=== PATIENT | female | born 1975 | race Caucasian/White ===

== ENCOUNTER → 2017-05-05 | Outpatient (CLI) | payer OTHER | LOC: FIMAGING 12:51 | PROVIDERS: ATTEND Obstetrics & Gynecology | DX: Z12.31 Encounter for screening mammogram for malignant neoplasm of breast (principal) | CPT/HCPCS: G0202 ==

== ENCOUNTER → 2017-09-11 | Outpatient (CLI) | payer OTHER | LOC: FIMAGING 14:53 | PROVIDERS: ATTEND Emergency Medicine | DX: K82.9 Disease of gallbladder, unspecified (principal); N28.9 Disorder of kidney and ureter, unspecified ==

== ENCOUNTER 2017-09-12 18:34 | Observation (INO) | payer OTHER ==
--- NOTE | 2017-09-12 19:10 | EDPHY ---
H & P Stated Complaint: GENERALIZED ABD PAIN SEEN HERE [address]/NEG Time Seen by Provider: 09/12/17 19:10 HPI/ROS: HPI: This is a 41-year-old male who presents with Chief Complaint: GENERALIZED ABD PAIN SEEN HERE [address]/NEG Location: Epigastric and suprapubic Quality: Sharp, constant pain Duration: 2 days Signs and Symptoms: no fever, + nausea, no vomiting, no hematemesis, no blood in stool, no abdominal bloating, no diarrhea, no back pain, no urinary symptoms , no vaginal bleeding/discharge, no indigestion, no chest pain, no shortness of breath Timing: Waxes and wane Severity: 03/14 Context: Patient presents for the 2nd time in 2 days with epigastric and suprapubic, sharp, constant, nonradiating pain. Patient was seen at [facility] [place] yesterday and CT abdomen and pelvis scan ordered that showed no acute process did show gallbladder distension upper limits of normal at 10.2 cm no gallbladder wall thickening or pericholecystic fluid with normal common bile duct. Patient denies any fever/urinary symptoms/vomiting/diarrhea. She is generally healthy and has had no prior abdominal complaints. LMP 1-7 days ago. Reports has normal daily bowel movements. She was taking Percocet all day yesterday to control the pain along with Zofran. Pain returned after an hour and half not having the Percocet. She also took ibuprofen today with no relief. Patient is extremely frustrated as she has never had pain like this in the past. Modifying Factors: See above Comment: ROS: see HPI Constitutional: No fever, no chills, no weight loss Eyes: No blurred vision Respiratory: No shortness of breath, no cough Cardiovascular: No chest pain, no palpitations Gastrointestinal: + nausea, no vomiting, no diarrhea, no hematemesis, no blood in stool Genitourinary: No dysuria, no blood in urine Extremities: No myalgias, no edema Neurologic: No weakness, no numbness Skin: No rashes, no petechiae Hematologic: No bruising, no bleeding MEDICAL/SURGICAL/SOCIAL HISTORY: Medical history: Generally healthy. Does not take any regular medications. Surgical history: Denies Social history: Employed. . CONSTITUTIONAL: Moderate distress middle-aged white female, awake and alert HEENT: Atraumatic and normocephalic, PERRL, EOMI. Tympanic membranes clear. Oropharynx clear, no exudate and moist pink mucosa. Airway patent. No lymphadenopathy. No meningismus. Cardiovascular: Normal S1/S2, regular rate, regular rhythm, without murmur rub or gallop. PULMONARY/CHEST: Symmetrical and nontender. Clear to auscultation bilaterally. Good air movement. No accessory muscle usage. ABDOMEN: Soft, nondistended, moderate epigastric, mild right upper quadrant, mild suprapubic tenderness, no rebound, no guarding, no peritoneal signs, no masses or organomegaly. No CVAT. Hypoactive bowel sounds x4 EXTREMITIES: 2/2 pulses, strength 5/5, no deformities, no clubbing, no cyanosis or edema. NEUROLOGICAL: no focal neuro deficits. GCS 15. SKIN: Warm and dry, no erythema. no rash. Good capillary refill. Source: Patient Exam Limitations: No limitations - Personal History LMP (Females 10-55): 1-7 Days Ago Current Tetanus/Diphtheria Vaccine: Yes - Medical/Surgical History Hx Asthma: No Hx Chronic Respiratory Disease: No Hx Diabetes: No Hx Cardiac Disease: No Hx Renal Disease: No Hx Cirrhosis: No Hx Alcoholism: No Hx HIV/AIDS: No Hx Splenectomy or Spleen Trauma: No Other PMH: DENIES - Social History Smoking Status: Current every day smoker Constitutional: Initial Vital Signs Temperature (C) 37 C 09/12/17 18:45 Heart Rate 50 L 09/12/17 18:45 Respiratory Rate 18 09/12/17 18:45 Blood Pressure 184/84 H 09/12/17 18:45 O2 Sat (%) 98 09/12/17 18:45 O2 Delivery Mode Room Air Allergies/Adverse Reactions: No Known Allergies Allergy (Unverified 09/12/17 18:45) Home Medications: Medication Instructions Recorded [place] 5/325 (*) 09/12/17 Zofran 09/12/17 Medical Decision Making - Diagnostics Imaging Results: Imaging Impressions Abdomen Ultrasound 09/12/17 19:26 Impression: 1. Distended, otherwise normal gallbladder. 2. Common bile duct upper normal in size. 3. Elongated right hepatic lobe, which could be related to hepatomegaly or a Ravinder's lobe (normal variant). Findings discussed with Elena Jeff 09/12/2017 at 20:54. Pelvic/Renal Ultrasound 09/12/17 19:26 Impression: No visible etiology for the patient's pain. Findings discussed with Elena Jeff 09/12/2017 at 20:54. ED Course/Re-evaluation: Urinalysis, labs, IV fluids, IV medications, right upper quadrant ultrasound, pelvic ultrasound ordered Vital signs reviewed upon arrival and no systemic signs. Given 1 L normal saline, IV promethazine and IV Dilaudid Labs reviewed and grossly unremarkable including normal LFTs. Urinalysis pending upon consultation. Urine at bedside was light yellow in color. Doubt urinary tract infection. ED decision to consult for admission for intractable abdominal pain of unknown etiology. Spoke with Dr. Antonieta Navarrete who kindly accepts to admit patient and provide further care. This patient was seen under the supervision of my secondary supervising physician. I evaluated care for this patient independently. Discussed this patient with Dr. Og who did not see the patient. Differential Diagnosis: Abdominal pain in a female including but not limited to ovarian cyst, pelvic inflammatory disease, ovarian torsion, urinary tract infection, and appendicitis. - Data Points Laboratory Results: Laboratory Results 09/12/17 18:35 09/12/17 18:35 09/12/17 09/12/17 09/12/17 20:41 18:35 18:35 WBC RBC Hgb Hct MCV MCH MCHC RDW Plt Count MPV Neut % (Auto) Lymph % (Auto) [place] % (Auto) Eos % (Auto) Baso % (Auto) Nucleat RBC Rel Count Absolute Neuts (auto) Absolute Lymphs (auto) Absolute Monos (auto) Absolute Eos (auto) Absolute Basos (auto) Absolute Nucleated RBC Immature Gran % Immature Gran # VBG Lactic Acid 0.9 mmol/L mmol/L (0.7-2.1) Sodium 139 mEq/L mEq/L (135-145) Potassium 3.8 mEq/L mEq/L (3.5-5.2) Chloride 104 mEq/L mEq/L (97-110) Carbon Dioxide 26 mEq/l mEq/l (22-31) Anion Gap 9 mEq/L mEq/L (8-16) BUN 11 mg/dL mg/dL (7-23) Creatinine 0.9 mg/dL mg/dL (0.6-1.0) Estimated GFR > 60 Glucose 105 mg/dL H mg/dL (70-100) Calcium 8.9 mg/dL mg/dL (8.5-10.4) Total Bilirubin 0.8 mg/dL mg/dL (0.1-1.4) Conjugated Bilirubin 0.4 mg/dL mg/dL (0.0-0.5) Unconjugated Bilirubin 0.4 mg/dL mg/dL (0.0-1.1) AST 21 IU/L IU/L (14-46) ALT 45 IU/L IU/L (9-52) Alkaline Phosphatase 63 IU/L IU/L (38-126) Total Protein 6.6 g/dL g/dL (6.3-8.2) Albumin 4.2 g/dL g/dL (3.5-5.0) Lipase 176 IU/L IU/L (23-300) Beta HCG, Qual NEGATIVE 09/12/17 18:35 WBC 6.10 10^3/uL 10^3/uL (3.80-9.50) RBC 4.37 10^6/uL 10^6/uL (4.18-5.33) Hgb 13.9 g/dL g/dL (12.6-16.3) Hct 39.4 % % (38.0-47.0) MCV 90.2 fL fL (81.5-99.8) MCH 31.8 pg pg (27.9-34.1) MCHC 35.3 g/dL g/dL (32.4-36.7) RDW 11.7 % % (11.5-15.2) Plt Count 264 10^3/uL 10^3/uL (150-400) MPV 9.1 fL fL (8.7-11.7) Neut % (Auto) 57.1 % % (39.3-74.2) Lymph % (Auto) 28.2 % % (15.0-45.0) [place] % (Auto) 10.0 % % (4.5-13.0) Eos % (Auto) 3.8 % % (0.6-7.6) Baso % (Auto) 0.7 % % (0.3-1.7) Nucleat RBC Rel Count 0.0 % % (0.0-0.2) Absolute Neuts (auto) 3.49 10^3/uL 10^3/uL (1.70-6.50) Absolute Lymphs (auto) 1.72 10^3/uL 10^3/uL (1.00-3.00) Absolute Monos (auto) 0.61 10^3/uL 10^3/uL (0.30-0.80) Absolute Eos (auto) 0.23 10^3/uL 10^3/uL (0.03-0.40) Absolute Basos (auto) 0.04 10^3/uL 10^3/uL (0.02-0.10) Absolute Nucleated RBC 0.00 10^3/uL 10^3/uL (0-0.01) Immature Gran % 0.2 % % (0.0-1.1) Immature Gran # 0.01 10^3/uL 10^3/uL (0.00-0.10) VBG Lactic Acid Sodium Potassium Chloride Carbon Dioxide Anion Gap BUN Creatinine Estimated GFR Glucose Calcium Total Bilirubin Conjugated Bilirubin Unconjugated Bilirubin AST ALT Alkaline Phosphatase Total Protein Albumin Lipase Beta HCG, Qual Medications Given: Discontinued Medications Hydromorphone HCl (Dilaudid) 1 mg IVP EDNOW ONE Stop: 09/12/17 19:27 Last Admin: 09/12/17 19:55 Dose: 1 mg Sodium Chloride (Ns) 1,000 mls @ 0 mls/hr IV EDNOW ONE; Wide Open PRN Reason: Protocol Stop: 09/12/17 19:27 Last Admin: 09/12/17 19:55 Dose: 1,000 mls Promethazine HCl (Phenergan) 12.5 mg IVP EDNOW ONE Stop: 09/12/17 19:27 Last Admin: 09/12/17 19:56 Dose: 12.5 mg Departure - Departure Disposition: [facility] Inpatient Acute Clinical Impression: Intractable abdominal pain Condition: Fair
[2017-09-12] MEDS ORDERED: HYDROmorphONE/DILAUDID 2 MG/ML INJ IVP ONE (19:26)
[2017-09-12] MEDS ORDERED: NS 1,000 ML IV ONE (19:26)
[2017-09-12] MEDS ORDERED: PROMETHAZINE HCL 25 MG/ML INJ IVP ONE (19:26)
[2017-09-12 19:50] LABS: PLATELET COUNT 264 10^3/uL (150-400)
[2017-09-12] MEDS ORDERED: PROMETHAZINE HCL 25 MG/ML INJ IVP PRN (22:08)
[2017-09-12] MEDS ORDERED: HYDROmorphone HCL/NS 0.5 MG/ML SYR IVP PRN (22:08)
[2017-09-12] MEDS ORDERED: ONDANSETRON 4 MG/2 ML VIAL IVP PRN (22:08)
[2017-09-12] MEDS ORDERED: ACETAMINOPHEN 325 MG TAB PO PRN (22:08)
[2017-09-12] MEDS ORDERED: HYDROmorphONE/DILAUDID 2 MG TAB PO PRN (22:08)
[2017-09-12] MEDS ORDERED: ONDANSETRON DISINTEGRATING 4 MG TAB PO PRN (22:08)
[2017-09-12] MEDS ORDERED: DICYCLOMINE 10 MG CAP PO PRN (23:30)
--- NOTE | 2017-09-12 23:36 | PDGENHP ---
History and Physical - Chief Complaint Abdominal pain - History of Present Illness 41 yo F w/ no significant PMHx presents w/ abdominal pain. Patient first developed pain three days [employer]. She [place] [facility] [place] with [place] and Zofran. However, pain has persisted so she again came to the ED. She explains that the pain started as epi-gastric, then also involved the supra-pubic and lumbar areas. The pain is severe and associated with nausea and vomiting. She denies fever, diarrhea, dysuria, and abnormal vaginal discharge. Her LMP ended yesterday and she describes this as a normal period. Laboratory work-up, CT scan , and abdominal ultrasounds have not revealed clear etiology thus far. She is being admitted for pain control and possible further work-up. History Information - Allergies/Home Medication List Allergies/Adverse Reactions: No Known Allergies Allergy (Unverified 09/12/17 18:45) Home Medications: [place] 5/325 (*) 09/12/17 [Last Taken Unknown] Zofran 09/12/17 [Last Taken Unknown] I have personally reviewed and updated: family history, medical history - Past Medical History no pertinent PMH - Surgical History Reports: no pertinent surgical hx - Family History Additional family history: Denies - Social History Smoking Status: Never smoked Review of Systems Review of Systems: ROS: 10pt was reviewed & negative except for what was stated in HPI & below Physical Exam Physical Exam: Temp Pulse Resp BP Pulse Ox 37.0 C 44 L 14 160/94 H 96 09/12/17 23:00 09/12/17 23:00 09/12/17 23:00 09/12/17 23:00 09/12/17 23:00 Constitutional: no apparent distress, appears nourished Eyes: PERRL, EOMI Ears, Nose, Mouth, Throat: moist mucous membranes, no oral mucosal ulcers Cardiovascular: regular rate and rhythym, no murmur, rub, or gallop Respiratory: no respiratory distress, clear to auscultation Gastrointestinal: normoactive bowel sounds, tenderness (Mild, epi-gastric), No wise's sign, No guarding, No rebound, No distension Genitourinary: no bladder tenderness Skin: warm, normal color Musculoskeletal: full muscle strength, no muscle tenderness Neurologic: AAOx3, CN II-XII Intact Psychiatric: interacting appropriately, not anxious Lab Data & Imaging Review 09/12/17 18:35 09/12/17 18:35 WBC 6.10 10^3/uL (3.80-9.50) 09/12/17 18:35 RBC 4.37 10^6/uL (4.18-5.33) 09/12/17 18:35 Hgb 13.9 g/dL (12.6-16.3) 09/12/17 18:35 Hct 39.4 % (38.0-47.0) 09/12/17 18:35 MCV 90.2 fL (81.5-99.8) 09/12/17 18:35 MCH 31.8 pg (27.9-34.1) 09/12/17 18:35 MCHC 35.3 g/dL (32.4-36.7) 09/12/17 18:35 RDW 11.7 % (11.5-15.2) 09/12/17 18:35 Plt Count 264 10^3/uL (150-400) 09/12/17 18:35 MPV 9.1 fL (8.7-11.7) 09/12/17 18:35 Neut % (Auto) 57.1 % (39.3-74.2) 09/12/17 18:35 Lymph % (Auto) 28.2 % (15.0-45.0) 09/12/17 18:35 [place] % (Auto) 10.0 % (4.5-13.0) 09/12/17 18:35 Eos % (Auto) 3.8 % (0.6-7.6) 09/12/17 18:35 Baso % (Auto) 0.7 % (0.3-1.7) 09/12/17 18:35 Nucleat RBC Rel Count 0.0 % (0.0-0.2) 09/12/17 18:35 Absolute Neuts (auto) 3.49 10^3/uL (1.70-6.50) 09/12/17 18:35 Absolute Lymphs (auto) 1.72 10^3/uL (1.00-3.00) 09/12/17 18:35 Absolute Monos (auto) 0.61 10^3/uL (0.30-0.80) 09/12/17 18:35 Absolute Eos (auto) 0.23 10^3/uL (0.03-0.40) 09/12/17 18:35 Absolute Basos (auto) 0.04 10^3/uL (0.02-0.10) 09/12/17 18:35 Absolute Nucleated RBC 0.00 10^3/uL (0-0.01) 09/12/17 18:35 Immature Gran % 0.2 % (0.0-1.1) 09/12/17 18:35 Immature Gran # 0.01 10^3/uL (0.00-0.10) 09/12/17 18:35 VBG Lactic Acid 0.9 mmol/L (0.7-2.1) 09/12/17 20:41 Sodium 139 mEq/L (135-145) 09/12/17 18:35 Potassium 3.8 mEq/L (3.5-5.2) 09/12/17 18:35 Chloride 104 mEq/L (97-110) 09/12/17 18:35 Carbon Dioxide 26 mEq/l (22-31) 09/12/17 18:35 Anion Gap 9 mEq/L (8-16) 09/12/17 18:35 BUN 11 mg/dL (7-23) 09/12/17 18:35 Creatinine 0.9 mg/dL (0.6-1.0) 09/12/17 18:35 Estimated GFR > 60 09/12/17 18:35 Glucose 105 mg/dL (70-100) H 09/12/17 18:35 Calcium 8.9 mg/dL (8.5-10.4) 09/12/17 18:35 Total Bilirubin 0.8 mg/dL (0.1-1.4) 09/12/17 18:35 Conjugated Bilirubin 0.4 mg/dL (0.0-0.5) 09/12/17 18:35 Unconjugated Bilirubin 0.4 mg/dL (0.0-1.1) 09/12/17 18:35 AST 21 IU/L (14-46) 09/12/17 18:35 ALT 45 IU/L (9-52) 09/12/17 18:35 Alkaline Phosphatase 63 IU/L (38-126) 09/12/17 18:35 Total Protein 6.6 g/dL (6.3-8.2) 09/12/17 18:35 Albumin 4.2 g/dL (3.5-5.0) 09/12/17 18:35 Lipase 176 IU/L (23-300) 09/12/17 18:35 Beta HCG, Qual NEGATIVE 09/12/17 18:35 Urine Color YELLOW 09/12/17 22:02 Urine Appearance CLEAR 09/12/17 22:02 Urine pH 5.0 (5.0-7.5) 09/12/17 22:02 Ur Specific [place] 1.023 (1.002-1.030) 09/12/17 22:02 Urine Protein NEGATIVE (NEGATIVE) 09/12/17 22:02 Urine Ketones TRACE (NEGATIVE) H 09/12/17 22:02 Urine Blood NEGATIVE (NEGATIVE) 09/12/17 22: Urine Nitrate NEGATIVE (NEGATIVE) 09/12/17 22:02 Urine Bilirubin NEGATIVE (NEGATIVE) 09/12/17 22: Urine Urobilinogen NEGATIVE EU (0.2-1.0) 09/12/17 22:02 Ur Leukocyte Esterase NEGATIVE (NEGATIVE) 09/12/17 22: Urine Glucose NEGATIVE (NEGATIVE) 09/12/17 22:02 Imaging Review: Imaging Impressions Abdomen Ultrasound 09/12/17 19:26 Impression: 1. Distended, otherwise normal gallbladder. 2. Common bile duct upper normal in size. 3. Elongated right hepatic lobe, which could be related to hepatomegaly or a Ravinder's lobe (normal variant). Findings discussed with Elena Jeff 09/12/2017 at 20:54. Pelvic/Renal Ultrasound 09/12/17 19:26 Impression: No visible etiology for the patient's pain. Findings discussed with Elena Jeff 09/12/2017 at 20:54. Assessment & Plan Assessment: 41 yo F w/ no significant PMH presents with abdominal pain of unclear etiology. Plan: 1. Abdominal pain - Unclear etiology, laboratory work-up including LFTs unremarkable. UA w/o signs of infection. CT scan shows distended gallbladder but no other abnormalities. Pelvic ultrasound also without explanation. Chief considerations at this point include PUD and IBS. I doubt gallbladder pathology is related but this could be investigated with HIDA scan or surgical consultation if symptoms do not improve with conservative management. - Admit for observation - Will try dicyclomine PRN - Check H. Pylori IgG - Anti-emetics PRN Diet - Clears, ADAT Ppx - Low risk Code - Full Dispo - Admit under observation status
[2017-09-13 05:13] LABS: PLATELET COUNT 252 10^3/uL (150-400)
[2017-09-13 10:51] VITALS: BP 128/73
--- NOTE | 2017-09-13 14:40 | PDDCSUM ---
Discharge Summary Discharge Summary: 41 yo F w/ no significant PMH presents with abdominal pain of unclear etiology. She has had a unremarkable CT Abd/Pelvis recently. She had a negative Abd US and Pelvic US during this admission. She was kept overnight and know feels much better. She required zofran and Dilaudid this morning, but none since. She is tolerating a CLD. Her exam is benign. She does not have any RUQ tenderness or murphys sign. She does not have nausea. The etiology remains unknown and she will f/u with her PCP for further mgmt. I have given her a script for Bentyl, Zofran, and Dilaudid. She is in agreement with this plan. H-Pylor was negative. She will take stool softners DDX: #Generalized abd pain, resolved #Nausea, resolved Exam: NAD AAOX3 RRR CTA BL S/NT/ND MEDS: SEE MED REC F/U: WITH PCP IN ONE WEEK TOTAL TIME SPENT ON D/C IS 35 MINUTES
== END 2017-09-13 15:35 | disposition home or self-care (01) ==
LOC: F3E 22:54
PROVIDERS: ADMIT Student in an Organized Health Care Education/Training Program; ATTEND Family Medicine
DX: R10.84 Generalized abdominal pain (principal); R11.0 Nausea; F17.210 Nicotine dependence, cigarettes, uncomplicated
CPT/HCPCS: 76705; 76856; 96374; 96375; 99285; G0378; J1170; J2550